=== PATIENT | male | born 1965 | race African-American/Black ===

== ENCOUNTER 2024-08-11 13:01 | Inpatient (IN) | payer BC ==
[2024-08-11] MEDS ORDERED: ACETAMINOPHEN 325 MG TABLET (FP) PO PRN (14:44)
[2024-08-11] MEDS ORDERED: MAG HYDROX/AL HYDROX/SIMETH 30 ML UNIT-DOSE CUP PO PRN (14:44)
[2024-08-11] MEDS ORDERED: POLYETHYLENE GLYCOL (HEALTHYLAX) 3350 17 GM PACKET PO PRN (14:44)
[2024-08-11] MEDS ORDERED: guaiFENesin 600 MG TABLET.ER (FP) PO PRN (14:44)
[2024-08-11] MEDS ORDERED: LOPERAMIDE HCL 2 MG CAPSULE PO PRN (14:44)
[2024-08-11] MEDS ORDERED: ONDANSETRON *ODT* 4 MG TABLET SL PRN (14:44)
[2024-08-11] MEDS ORDERED: NICOTINE POLACRILEX 2 MG GUM BUC PRN (14:44)
[2024-08-11] MEDS ORDERED: BENZONATATE 200 MG CAPSULE PO PRN (14:44)
[2024-08-11] MEDS ORDERED: P-EPHED 60MG/TRIPROLIDI 2.5MG TABLET PO PRN (14:44)
[2024-08-11] MEDS ORDERED: IBUPROFEN 400 MG TABLET (FP) PO PRN (14:44)
[2024-08-11] MEDS ORDERED: IBUPROFEN 600 MG TABLET (FP) PO PRN (14:44)
[2024-08-11] MEDS ORDERED: BENZOCAINE/MENTHOL (CHLORASEPTIC ) LOZENGE MM PRN (14:44)
[2024-08-11] MEDS ORDERED: BISMUTH SUBSALICYLATE 262 MG/15 ML BTL PO PRN (14:44)
[2024-08-11] MEDS ORDERED: NALOXONE (NARCAN) HCL 4 MG/0.1 ML SPRAY NS PRN (14:44)
[2024-08-11] MEDS ORDERED: NICOTINE POLACRILEX 2 MG LOZENGE BC PRN (14:44)
[2024-08-11] MEDS ORDERED: MAGNESIUM HYDROX 2400MG/30ML ORAL SUSPENSION 30 ML CUP PO PRN (14:44)
[2024-08-11 15:53] VITALS: BMI 29.8
[2024-08-11] MEDS: DICYCLOMINE HCL 10 MG CAPSULE PO PRN (17:42)
[2024-08-11] MEDS: cloNIDine HCL 0.1 MG TABLET PO PRN (17:43)
[2024-08-11] MEDS: methaDONE HCL 10 MG TABLET (FOR DETOX USE ONLY) PO ONE (22:30)
[2024-08-11] MEDS: THIAMINE 100 MG TABLET PO SCH (22:36)
[2024-08-11] MEDS: MELATONIN 5 MG TABLETS PO SCH (22:40)
[2024-08-11] MEDS: ALBUTEROL SO4 HFA INHALER IH PRN (22:50)
[2024-08-12] MEDS: PRENATAL VITAMINS W/ FOLIC ACID TABLET (FP) PO SCH (09:04)
[2024-08-12 17:21] LABS: HEMOGLOBIN 11.7 GM/dL (11.7-16.9); MCH 26.2 pg (25.7-33.7); MCHC 31.7 g/dl (32.0-35.9); MEAN CELL VOLUME 82.7 fl (80-96); MEAN PLT VOLUME 8.8 fl (7.5-11.1); PLATELET COUNT 194 10^3/uL (134-434); RBC 4.48 M/mm3 (4.00-5.60); RDW 14.2 % (11.9-15.9); WHITE BLOOD COUNT 4.7 K/mm3 (4.0-10.0)
[2024-08-12 17:31] LABS: POTASSIUM 4.2 mmol/L (3.5-5.1)
[2024-08-12 17:34] LABS: CALCIUM 8.7 mg/dL (8.5-10.1)
[2024-08-12 17:35] LABS: ALBUMIN 3.2 g/dl (3.4-5.0); BLOOD UREA NITROGEN 12.2 mg/dL (7-18)
[2024-08-12 17:38] LABS: CREATININE 0.9 mg/dL (0.55-1.3)
[2024-08-12 17:40] LABS: BILIRUBIN,TOTAL 0.4 mg/dL (0.2-1); TOT PROT 6.6 g/dl (6.4-8.2)
[2024-08-13] MEDS: methaDONE HCL 10 MG TABLET (FOR DETOX USE ONLY) PO ONE (10:14)
[2024-08-14 20:52] VITALS: RESP 16
[2024-08-15 08:59] VITALS: BP 141/82; PULSE 68; TEMP 97.6
[2024-08-15] MEDS: methaDONE HCL 10 MG TABLET (FOR DETOX USE ONLY) PO ONE (09:26)
== END 2024-08-15 09:50 | disposition home or self-care (01) | DRG 773 ==
LOC: YASAS 13:01 → Y6N 15:50
PROVIDERS: ADMIT Allergy & Immunology; ATTEND Allergy & Immunology
PROC: HZ2ZZZZ Detoxification Services for Substance Abuse Treatment (ICD-10-PCS; principal; 2024-08-11)
DX: F11.23 Opioid dependence with withdrawal (principal); F17.213 Nicotine dependence, cigarettes, with withdrawal; I10 Essential (primary) hypertension; J45.20 Mild intermittent asthma, uncomplicated
CPT/HCPCS: 36415; 80053; 80305; 80307; 85027; 86780; 93005; 93010